=== PATIENT | female | born 1995 | race Caucasian/White ===

== ENCOUNTER 2018-04-28 00:54 | Emergency (ER) | payer BC ==
[~2018-04-28] VITALS: Ht 172.7 cm; Wt 94.5 kg
[2018-04-28 01:06] VITALS: TEMP 36.6; Ht 172.7 cm; Wt 94.5 kg
[2018-04-28] MEDS ORDERED: LORAZEPAM 0.5 MG TAB SL STA (01:10)
--- NOTE | 2018-04-28 01:11 | EMERGENCY ROOM VISIT NOTE ---
History Report prepared by Delores: Chong Gibbs Under the Supervision of: Dr. Rome Nicole M.D. First contact with patient: 00:59 Chief Complaint: ANXIETY Stated Complaint: SOB,CHEST PAIN,NO OXYGEN History of Present Illness The patient is a 22 year old female who presents to the Emergency Room with complaints of constant SOB beginning last night. The patient states that she started having SOB tonight when she was going to bed. She notes that her breathing was short and jagged. She reports that she felt as though she could not breathe and she states that she had to force herself to breathe. She notes that her symptoms worsen when she lies down. She also complains of having heavy arms, feeling tired, dizziness, and chest discomfort. She reports that her last menstrual period was 5-6 weeks ago but she states that she typically has late periods. She notes that she did not take her control for the last week. She reports that she has no previous health problems. The patient declined having her parents called. Source of History: patient Onset: last night Position: chest Quality: other (SOB) Timing: constant Modifying Factors (Worsening): other (lying down) Note: The patient also complains of having heavy arms, feeling tired, dizziness, and chest discomfort. Review of Systems See HPI for pertinent positives & negatives. A total of 10 systems reviewed and were otherwise negative. Past Medical & Surgical Medical Problems: (1) No chronic problems Family History No pertinent family history stated. Social History Marital Status: Housing Status: lives with family Occupation Status: [employer] student Current/Historical Medications Scheduled PRN Lorazepam (Ativan), 0.5 MG PO Q6H PRN for Anxiety/Agitation Physical Exam Vital Signs Date Time Temp Pulse Resp B/P (MAP) Pulse Ox O2 Delivery O2 Flow Rate FiO2 04/28/18 03:55 61 18 126/59 97 04/28/18 03:13 67 17 142/74 97 Room Air 04/28/18 02:13 78 18 139/89 97 Room Air 04/28/18 01:26 71 04/28/18 01:23 99 Room Air 04/28/18 01:23 99 Room Air 04/28/18 01:06 36.6 112 24 154/83 99 Room Air Physical Exam GENERAL: Awake, alert, well-appearing, in no acute distress HENT: Normocephalic, atraumatic. Oropharynx unremarkable. EYES: Normal conjunctiva. Sclera non-icteric. NECK: Supple. No nuchal rigidity. FROM. No JVD. RESPIRATORY: Clear to auscultation. Hyperventilating on exam. CARDIAC: Regular rate, normal rhythm. Extremities warm and well perfused. Pulses equal. ABDOMEN: Soft, non-distended. No tenderness to palpation. No rebound or guarding. No masses. RECTAL: Deferred. MUSCULOSKELETAL: Chest examination reveals no tenderness. The back is symmetrical on inspection without obvious abnormality. There is no CVA tenderness to palpation. No joint edema. LOWER EXTREMITIES: Calves are equal size bilaterally and non-tender. No edema. No discoloration. NEURO: Normal sensorium. No sensory or motor deficits noted. SKIN: No rash or jaundice noted. Medical Decision & Procedures ER Provider Diagnostic Interpretation: Radiology results as stated below per my review and interpretation: CHEST X-RAY: Chronic changes noted. No evidence of pneumonia, congestion, or pneumothorax. Laboratory Results 04/28/18 01:15 Red Blood Count 4.65, Mean Corpuscular Volume 89.2, Mean Corpuscular Hemoglobin 31.0, Mean Corpuscular Hemoglobin Concent 34.7, Mean Platelet Volume 9.6, Neutrophils (%) (Auto) 56.7, Lymphocytes (%) (Auto) 32.8, Monocytes (%) (Auto) 8.8, Eosinophils (%) (Auto) 1.2, Basophils (%) (Auto) 0.2, Neutrophils # (Auto) 6.38, Lymphocytes # (Auto) 3.69, Monocytes # (Auto) 0.99, Eosinophils # (Auto) 0.14, Basophils # (Auto) 0.02 04/28/18 01:15 Test 04/28/18 01:15 04/28/18 01:22 04/28/18 01:24 White Blood Count 11.25 K/uL (4.8-10.8) Red Blood Count 4.65 M/uL (4.2-5.4) Hemoglobin 14.4 g/dL (12.0-16.0) Hematocrit 41.5 % (37-47) Mean Corpuscular Volume 89.2 fL (80-100) Mean Corpuscular Hemoglobin 31.0 pg (25-34) Mean Corpuscular Hemoglobin Concent 34.7 g/dl (32-36) Platelet Count 395 K/uL (130-400) Mean Platelet Volume 9.6 fL (7.4-10.4) Neutrophils (%) (Auto) 56.7 % Lymphocytes (%) (Auto) 32.8 % Monocytes (%) (Auto) 8.8 % Eosinophils (%) (Auto) 1.2 % Basophils (%) (Auto) 0.2 % Neutrophils # (Auto) 6.38 K/uL (1.4-6.5) Lymphocytes # (Auto) 3.69 K/uL (1.2-3.4) Monocytes # (Auto) 0.99 K/uL (0.11-0.59) Eosinophils # (Auto) 0.14 K/uL (0-0.5) Basophils # (Auto) 0.02 K/uL (0-0.2) RDW Standard Deviation 41.7 fL (36.4-46.3) RDW Coefficient of Variation 12.9 % (11.5-14.5) Immature Granulocyte % (Auto) 0.3 % Immature Granulocyte # (Auto) 0.03 K/uL (0.00-0.02) Urine Color YELLOW Urine Appearance CLEAR (CLEAR) Urine pH 7.5 (4.5-7.5) Urine Specific [place] 1.005 (1.000-1.030) Urine Protein NEG (NEG) Urine Glucose (UA) NEG (NEG) Urine Ketones NEG (NEG) Urine Occult Blood NEG (NEG) Urine Nitrite NEG (NEG) Urine Bilirubin NEG (NEG) Urine Urobilinogen NEG (NEG) Urine Leukocyte Esterase NEG (NEG) Urine Test NEG (NEG) Est Creatinine Clear Calc Drug Dose 122.9 ml/min Estimated GFR () 110.4 Estimated GFR (Non- 95.2 BUN/Creatinine Ratio 10.2 (10-20) Calcium Level 8.8 mg/dl (8.5-10.1) Total Bilirubin 0.2 mg/dl (0.2-1) Aspartate Amino Transf (AST/SGOT) 19 U/L (15-37) Alanine Aminotransferase (ALT/SGPT) 30 U/L (12-78) Alkaline Phosphatase 57 U/L (45-117) Total Creatine Kinase 124 U/L (26-192) Creatine Kinase MB < 1.0 ng/ml (0.5-3.6) Creatine Kinase MB Ratio (0-3.0) Troponin I < 0.015 ng/ml (0-0.045) Total Protein 7.9 gm/dl (6.4-8.2) Albumin 3.9 gm/dl (3.4-5.0) Globulin 4.0 gm/dl (2.5-4.0) Albumin/Globulin Ratio 1.0 (0.9-2) Bedside Hemoglobin 13.9 g/dl (12.0-16.0) Bedside Hematocrit 41 % (37-47) Bedside Sodium 142 mEq/L (135-144) Bedside Potassium 3.5 mEq/L (3.3-5.0) Bedside Chloride 104 mEq/L (101-112) Bedside Total CO2 23 mEq/l (24-31) Anion Gap 19.0 mmol/L (16-25) Bedside Blood Urea Nitrogen 8 mg/dl (7-18) Bedside Creatinine 0.6 mg/dl (0.6-1.3) Bedside Glucose (other) 155 mg/dl (70-99) Bedside Ionized Calcium ([place]) 1.23 mmol/l (1.12-1.32) Bedside D-Dimer 266 ng/mlFEU (0-450) Labs reviewed by ED physician. Medications Administered Medications (Trade) Dose Ordered Sig/Jed Route Start Time Stop Time Status Last Admin Dose Admin Lorazepam (Ativan Tab) 0.5 mg NOW STAT SL 04/28/18 01:10 04/28/18 01:13 DC 04/28/18 01:10 0.5 MG Potassium Chloride (Klor-Con M10) 40 meq STK-MED ONCE .ROUTE 04/28/18 01:31 04/28/18 01:32 DC 04/28/18 01:33 40 MEQ Sodium Chloride 1,000 ml @ 999 mls/hr Q1H1M STAT IV 04/28/18 01:56 04/28/18 02:56 DC 04/28/18 02:13 999 MLS/HR Ketorolac Tromethamine (Toradol Inj) 30 mg NOW STAT IV 04/28/18 01:56 04/28/18 01:58 DC 04/28/18 02:08 30 MG Prochlorperazine Edisylate (Compazine Inj) 10 mg NOW STAT IV 04/28/18 01:56 04/28/18 01:58 DC 04/28/18 02:08 10 MG Diphenhydramine HCl (Benadryl Inj) 50 mg NOW STAT IV 04/28/18 01:56 04/28/18 01:58 DC 04/28/18 02:08 50 MG Magnesium Sulfate (Magnesium Sulfate 1gm / D5W) 1 gm NOW STAT IV 04/28/18 01:56 04/28/18 01:58 DC 04/28/18 02:09 1 GM Lorazepam (Ativan 1MG Home Pack) 1 homepack UD ONCE PO 04/28/18 03:45 04/28/18 03:46 DC 04/28/18 03:47 1 HOMEPACK Dexamethasone Sodium Phosphate 10 mg/Syringe 2.5 ml @ 1 mls/min NOW STAT IV 04/28/18 03:44 04/28/18 03:46 DC 04/28/18 03:50 1 MLS/MIN ECG Per My Interpretation Indication: SOB/dyspnea Rate (beats per minute): 79 Rhythm: normal sinus Findings: other (Normal EKG, no ST elevation/depression) ED Course 0027: Past medical records reviewed. The patient was evaluated in room B3. A complete history and physical examination was performed. 0347: Upon reexamination the patient is stable. I discussed results and treatment plan with the patient. She verbalizes agreement and understanding. The patient is ready for discharge. Medical Decision Differential diagnosis: Etiologies such as infections, reactive airway disease, pneumonia, pneumothorax , COPD, CHF, cardiac ischemia, pulmonary embolism, musculoskeletal, gastrointestinal, as well as others were entertained. This is a 22-year-old female who presents emergency department over concerns that she cannot breathe. I will note that the patient is actively hyperventilating. I tried to reassure the patient. I offered to call this patient's parents however she adamantly refused. I did discuss everything with both the patient and her fianc. The patient arrives during a period of high volume and high acuity. She was given Ativan. Repeat examination revealed much improvement the patient's symptoms. While in the emergency department the patient began complaining of a headache. She notes she has had multiple headaches like this previously. She denies sudden onset. The patient was also exposed to several chemicals at work. She has no evidence of a pneumonitis on chest x-ray. She was given Toradol as well as Compazine Benadryl and magnesium for her headache. Repeat examination revealed improvement the patient's symptoms. The patient has no evidence of meningitis or encephalitis on physical examination. I do believe she can be safely discharged home. She was given Decadron to prevent the headache from coming back. Patient and fianc were in agreement with treatment plan. I stressed the need for follow-up with the patient's primary care physician if her anxiety is continuing. She was given a limited supply of Ativan. Medication Reconcilliation Current Medication List: was personally reviewed by me Blood Pressure Screening Patient's blood pressure: Normal blood pressure Blood pressure disposition: Did not require urgent referral Impression Primary Impression: Headache Scribe Attestation The scribe's documentation has been prepared under my direction and personally reviewed by me in its entirety. I confirm that the note above accurately reflects all work, treatment, procedures, and medical decision making performed by me. Departure Information Dispostion Home / Self-Care Prescriptions Lorazepam (ATIVAN) 1 Mg Tab 0.5 MG PO Q6H Y for Anxiety/Agitation, #6 TAB Prov: Rome Nicole MD 04/28/18 Forms HOME CARE DOCUMENTATION FORM, IMPORTANT VISIT INFORMATION Patient Instructions My [facility] Additional Instructions Need follow up with PCP Follow up with DR Good's office for migraines You have been examined and treated today on an emergency basis only. This is not a substitute for, or an effort to provide, complete comprehensive medical care. It is impossible to recognize and treat all injuries or illnesses in a single emergency department visit. It is therefore important that you follow up closely with your PCP. Call as soon as possible for an appointment. Thank you for your time and consideration. I look forward to speaking with you again soon. Please don't hesitate to call us if you have any questions. Problem Qualifiers Primary Impression: Headache Headache type: unspecified Headache chronicity pattern: acute headache Intractability: not intractable Qualified Codes: R51 - Headache
[2018-04-28 01:23] VITALS: O2SAT 99
[2018-04-28] MEDS ORDERED: POTASSIUM CHLORIDE 20 MEQ TABCR PO STA (01:27)
[2018-04-28 01:31] LABS: BASO % 0.2 %; BASO ABS # 0.02 K/uL (0-0.2); EOS % 1.2 %; EOS ABS # 0.14 K/uL (0-0.5); HEMATOCRIT 41.5 % (37-47); HEMOGLOBIN 14.4 g/dL (12.0-16.0); IG# 0.03 K/uL (0.00-0.02); LYMPH % 32.8 %; LYMPH ABS # 3.69 K/uL (1.2-3.4); MEAN CELL VOLUME 89.2 fL (80-100); MEAN CORPUSCULAR HGB CONC 34.7 g/dl (32-36); MEAN PLATELET VOLUME 9.6 fL (7.4-10.4); MONO % 8.8 %; MONO ABS # 0.99 K/uL (0.11-0.59); NEUT % 56.7 %; NEUT ABS # 6.38 K/uL (1.4-6.5); PLATELET COUNT 395 K/uL (130-400); RED CELL DISTRIBUTION WIDTH CV 12.9 % (11.5-14.5); RED CELL DISTRIBUTION WIDTH SD 41.7 fL (36.4-46.3); WHITE BLOOD COUNT 11.25 K/uL (4.8-10.8)
[2018-04-28] MEDS ORDERED: POTASSIUM CHLORIDE 10 MEQ TABCR ONE (01:31)
[2018-04-28 01:38] LABS: ISTAT CREATININE 0.6 mg/dl (0.6-1.3); ISTAT IONIZED CALCIUM 1.23 mmol/l (1.12-1.32); ISTAT POTASSIUM 3.5 mEq/L (3.3-5.0)
[2018-04-28 01:53] LABS: ALBUMIN 3.9 gm/dl (3.4-5.0); ALKALINE PHOSPHATASE 57 U/L (45-117); ALT/SGPT 30 U/L (12-78); AST/SGOT 19 U/L (15-37); BLOOD UREA NITROGEN 9 mg/dl (7-18); CALCIUM 8.8 mg/dl (8.5-10.1); CARBON DIOXIDE 22 mmol/L (21-32); CKMB < 1.0 ng/ml (0.5-3.6); CREATININE 0.87 mg/dl (0.60-1.20); GLUCOSE 146 mg/dl (70-99); POTASSIUM 3.5 mmol/L (3.5-5.1); SODIUM 140 mmol/L (136-145); TOTAL PROTEIN 7.9 gm/dl (6.4-8.2)
[2018-04-28] MEDS ORDERED: SODIUM CHLORIDE 0.9% 1000ML 1,000 ML IV STA (01:56)
[2018-04-28] MEDS ORDERED: PROCHLORPERAZINE 5 MG/ML 2 ML VIAL IV STA (01:56)
[2018-04-28] MEDS ORDERED: MAGNESIUM SULFATE 1GM / D5W 1 GM BAG IV STA (01:56)
[2018-04-28] MEDS ORDERED: DiphenhydrAMINE HCL 50 MG/ML VIAL IV STA (01:56)
[2018-04-28] MEDS ORDERED: KETOROLAC TROMETHAMINE 30 MG/ML VIAL IV STA (01:56)
[2018-04-28] MEDS ORDERED: DEXAMETHASONE INJ 10 MG in SYRINGE 0 ML IV STA (03:44)
[2018-04-28] MEDS ORDERED: ATIVAN 1MG HOMEPACK PO ONE (03:45)
[2018-04-28] MEDS ORDERED: ATV/1 PO (03:47)
[2018-04-28] MEDS ORDERED: DEXAMETHASONE SOD INJ 10 MG/ML VIAL ONE (03:49)
[2018-04-28 03:55] VITALS: BP 126/59; PULSE 61; O2SAT 97
--- NOTE | 2018-04-28 06:39 | DIAGNOSTIC IMAGING REPORT ---
CHEST ONE VIEW PORTABLE HISTORY: 22 years-old Female Pt c/o SOB acute shortness of breath COMPARISON: None available TECHNIQUE: Portable AP view of the chest FINDINGS: Cardiomediastinal and hilar silhouettes are within normal limits. No pneumothorax, pleural effusion, focal airspace consolidation or overt pulmonary edema. The bones of the chest appear grossly intact. IMPRESSION: No acute process. The above report was generated using voice recognition software. It may contain grammatical, syntax or spelling errors. Electronically signed by: Graham Vivar M.D. 04/28/2018 6:38 AM Dictated Date/Time: 04/28/2018 6:37 AM
== END 2018-04-28 03:55 | disposition home or self-care (01) ==
LOC: C.EDB 00:57 → C.EDA 03:55
DX: R06.4 Hyperventilation (principal); R51 Headache; F41.9 Anxiety disorder, unspecified